=== PATIENT | male | born 1995 | race Caucasian/White ===

== ENCOUNTER 2016-11-21 08:57 | Emergency (ER) | payer SELFPAY ==
[2016-11-21 09:09] VITALS: TEMP 97.7; BMI 27.1
[2016-11-21] MEDS ORDERED: HYDROCODONE 5 MG/ACETAMIN 325 MG TAB PO ONE (09:15)
--- NOTE | 2016-11-21 09:18 | EDPRACDOC ---
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 Patient reports the majority of the pain to the medial knee. Denies striking his head, LOC, or neck pain. No numbness/ tingling, normal pulses/cap refill. Knee Problem Location: Left Mechanism: Reports: Twisting Circumstances: Reports: Fall Able to Bear Weight: Limited Pain Severity: Reports: Moderate Associated Signs & Symptoms: Reports: None ED Past Medical History - History Reviewed Yes Nurses notes reviewed and agree except as marked No Past Medical History: Yes Patient has no past medical history - Patient Medical History Surgical History: Reports: No Significant History - Social Medical History Smoking Status: Heavy tobacco smoker (5 or more cigarettes/day or daily pipe/ cigar) ETOH: None Substance Abuse: None Lives In: Home EDM Review of Systems - Review of Systems ROS Negative Except as Marked: Yes All systems reviewed and were negative except as marked Constitutional: No Symptoms Reported Eyes: No Symptoms Reported Ears: No Symptoms Reported Throat: No Symptoms Reported Cardiovascular: No Symptoms Reported Gastrointestinal: No Symptoms Reported Musculoskeletal: Knee Integumentary: No Symptoms Reported - Physical Exam Constitutional: Alert (Awake), No apparent distress Oriented to: Time, Person, Place Last recorded Vital Signs: Last Vital Signs Temp 97.7 F 11/21/16 09:06 Pulse 100 11/21/16 09:06 Resp 18 11/21/16 09:06 BP 156/80 11/21/16 09:06 Pulse Ox 96 11/21/16 09:06 Oxygen Pulse Oxygen Saturation 96 O2 Device Oxygen Flow Rate Fraction of Inspired Oxygen ( FIO2) - HEENT Head: Normal ( normocephalic) Eye Exam: Normal (PERRL, EOMI, Sclera white) Neck: Normal (FROM, trachea at midline) - Respiratory/Cardiovascular Respiratory: Normal - CTA (BBS clear to auscultation without adventitious sounds ) Cardiovascular: Normal (RRR without murmur, gallop or rub) - GI Auscultation: Normal (NABS) - Musculoskeletal Back: Normal (Non-Tender) Extremities: Other (Left knee - mild pain with palpation of medial aspect, worse with ROM, ROM limited d/t pain, no ecchymosis/swelling noted. No deformity , normal pulses and distal exam.) - Integumentary Skin: Normal, Warm, Dry Lymphatics: Normal (no adenopathy) - Neurologic Memory Impaired: Normal Motor Function: Normal (Normal tone, Pulses 2+ No cyanosis or edema, FROM) Mood Description: Normal ED Knee Problem Phys Exam - Musculoskeletal Knee: Limited ROM, Mild Tenderness Knee Ligaments: Normal Knee Meniscus: Normal Thigh: Normal Lower Leg: Normal Distal Function/Circulation: Normal - Integumentary Skin: Normal Lymphatics: Normal Decision Time to Discharge: 10:41 - Departure Disposition: Home Condition: Good Final Diagnosis: Left knee sprain Qualifiers: Encounter type: initial encounter Involved ligament of knee: other ligament Qualified Code(s): S83.8X2A - Sprain of other specified parts of left knee, initial encounter Instructions: RICE: Routine Care for Injuries Education/Counseling Given To: Patient Education/Counseling Given Regarding: Diagnosis, Treatment, Prognosis, Follow Up Referrals: Denis Sanders MD [Staff Physician] - One Week Everton Retana MD [Staff Physician] - One Week Prescriptions: Hydrocodone Bit/Acetaminophen [Hydrocodon-Acetaminophen 5-325] 1 tab PO Q6H PRN #12 tab PRN Reason: Pain Ibuprofen Tablet [Motrin] 800 mg PO TID #14 tab Additional Instructions: Please followup with PCP in 1-2days. Rest, ice and elevate knee, wear knee immobilizer and use crutches until followup. Return to ED if symptoms worsen/ change or concerns arise. Consider followup with Ortho if pain persists 3-4days.
--- NOTE | 2016-11-21 11:03 | DIRPT ---
CLINICAL DATA: Fell down steps this morning. Knee injury and pain. Initial encounter. EXAM: LEFT KNEE - COMPLETE 4+ VIEW COMPARISON: None. FINDINGS: There is no evidence of fracture, dislocation, or joint effusion. There is no evidence of arthropathy or other focal bone abnormality. Soft tissues are unremarkable. IMPRESSION: Negative. Electronically Signed By: Truman Morales M.D. On: 11/21/2016 11:00
[2016-11-21 11:18] VITALS: BP 153/73; PULSE 80
== END 2016-11-21 11:10 | disposition home or self-care (01) ==
LOC: ED 08:57
DX: S83.8X2A Sprain of other specified parts of left knee, initial encounter (principal); W01.0XXA Fall on same level from slipping, tripping and stumbling without subsequent striking against object, initial encounter; Y93.89 Activity, other specified
CPT/HCPCS: 73564; 99283; J3490